=== PATIENT | male | born 2000 | race Two or more races ===

== ENCOUNTER 2023-12-05 18:46 | Emergency (ER) | payer MEDICAID, OTHER ==
[~2023-12-05] VITALS: Ht 177.8 cm; Wt 139.0 kg
[2023-12-05 18:58] VITALS: BP 147/89; PULSE 83; RESP 16; O2SAT 98
[2023-12-05] MEDS ORDERED: AMOX875T4 PO (20:27)
== END 2023-12-05 20:32 | disposition home or self-care (01) ==
LOC: ER 18:46
DX: S01.25XA Open bite of nose, initial encounter (principal); W54.0XXA Bitten by dog, initial encounter; Y93.89 Activity, other specified; Y92.89 Other specified places as the place of occurrence of the external cause; Y99.8 Other external cause status